=== PATIENT | male | born 1975 | race Caucasian/White ===

== ENCOUNTER → 2024-01-25 | Outpatient (CLI) | payer BC, SELFPAY ==
[2024-01-25 10:17] LABS: Prostate Specific Antigen 6.76 ng/mL (0-4.00)
== END | disposition home or self-care (01) ==
PROVIDERS: PCP Family Medicine; Referring Provider Family Medicine; Visit Provider Family Medicine
DX: R97.20 Elevated prostate specific antigen [PSA] (principal)
CPT/HCPCS: 36415; 84153

== ENCOUNTER → 2024-01-31 | Outpatient (BNVA) | payer BC, SELFPAY | END | disposition home or self-care (01) | PROVIDERS: PCP Family Medicine; Referring Provider Family Medicine; Visit Provider Urology | DX: N40.1 Benign prostatic hyperplasia with lower urinary tract symptoms (principal); N13.8 Other obstructive and reflux uropathy; R97.20 Elevated prostate specific antigen [PSA]; I10 Essential (primary) hypertension | CPT/HCPCS: 99212; G0463 ==

== ENCOUNTER → 2024-02-18 | Outpatient (BNVA) | payer BC, SELFPAY | END | disposition home or self-care (01) | PROVIDERS: PCP Family Medicine; Referring Provider Family Medicine; Visit Provider Urology | DX: R97.20 Elevated prostate specific antigen [PSA] (principal); I10 Essential (primary) hypertension | CPT/HCPCS: 99212; G0463 ==

== ENCOUNTER → 2024-03-10 | Outpatient (CLI) | payer BC, SELFPAY ==
--- NOTE | 2024-03-10 | XR_ITS ---
Examination: Foot, right, 3 views Technique: AP, oblique, lateral views foot, 3 views weightbearing Date and time of exam: March 10, 2024 1328 hours Indications acute fracture base second metatarsal on foot examination January 01, 2024 FINDINGS: Significant osteopenia Significant partial healing fracture base second metatarsal with stable and satisfactory alignment IMPRESSION: Significant partial healing fracture base second metatarsal with stable and satisfactory alignment
== END | disposition home or self-care (01) ==
LOC: CDIM 12:59
PROVIDERS: PCP Family Medicine; Referring Provider Orthopaedic Surgery; Visit Provider Orthopaedic Surgery
DX: S92.321A Displaced fracture of second metatarsal bone, right foot, initial encounter for closed fracture (principal); X58.XXXA Exposure to other specified factors, initial encounter
CPT/HCPCS: 73630

== ENCOUNTER 2024-07-12 16:00 | Outpatient (RCR) | payer BC, SELFPAY ==
--- NOTE | 2024-07-06 15:07 | PT.OIERPT ---
PT OP Initial Eval Patient Information Outpatient Physical Therapy Treatment Date: 07/06/24 Visit Reasons: Fracture of foot Medical Diagnosis: S92.211D S92.312 D Treatment Dx #1: R foot weakness Treatment Dx #2: Decreased WB tolerance of R foot Start of Care: 07/06/24 Date of Onset: 12/31/24 Smoking Status Smoking Status: Never smoker Initial Assessment Subjective: Pt is 49 yr old male s/p trip and fall with R [employer]. He is ambulating with walking boot that he has used since February when he started weightbearing on that foot. He is ambulating slowly limited distances. 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 He has been trying to ambulate without the boot at work but doesn't feel he's ready on gravel. The pain is light in the foot. PMH: none reported Imaging: Xrays in EMR Pt goal: regain mobility and walk further, jog for exercise Objective: R ankle AROM: Strength: DF: 10 deg 4-/5 PF: 45 deg Inversion/Eversion: 15 deg Gait: decreased WB on R, unsymmetrical PROM: forefoot inversion/eversion: some tightness but low to no pain Assessment: Pt presentation consistent with referring Dx with decreased strength and WB tolerance of R ankle and foot. Pt requires skilled therapy to meet goals and has good rehab potential. Short Term and Skilled Nursing Goals 1. Ind with HEP 2. Ween off the boot as tolerated to ambulate x required distances with symmetrical pattern 3. Improved ankle strength into DF and PF to 4+/5 Treatment Plan ? 1. Manual therapy ? 2. Therex ? 3. Modalities as indicated, moist heat, ice, estim Frequency and Duration: 2x a week for 5 weeks Certification Dates: 07/06/24 to 10/04/24 Procedure Charges OP PT Eval Mod Complex 30 minutes: Yes
--- NOTE | 2024-07-10 18:21 | PT.ODAYNRPT ---
PT Outpatient Daily Note OP Daily Note Outpatient Physical Therapy Treatment Date: 07/10/24 Visit Reasons: Fracture of foot Subjective: He worked today with low pain in R foot and wearing boot at work. Objective: See F/S for therex Assessment: Low tissue irritability with therex Plan: Continue per POC Length of Time (minutes) of Treatment: 30 Minutes Procedure Charges Therapeutic Exercise 30 minutes: Yes
--- NOTE | 2024-07-12 17:55 | PT.ODAYNRPT ---
PT Outpatient Daily Note OP Daily Note Outpatient Physical Therapy Treatment Date: 07/12/24 Visit Reasons: Fracture of foot Subjective: Some tolerable soreness after last visit in the R foot Objective: See F/S for therex Assessment: Low tissue irritability with therex Plan: Continue per POC Length of Time (minutes) of Treatment: 30 Minutes Procedure Charges Therapeutic Exercise 30 minutes: Yes
== END 2024-07-12 23:59 | disposition home or self-care (01) ==
LOC: CPTX 16:00
PROVIDERS: PCP Orthopaedic Surgery; Referring Provider Orthopaedic Surgery; Visit Provider Orthopaedic Surgery
DX: M79.671 Pain in right foot (principal); R53.1 Weakness; S92.211D Displaced fracture of cuboid bone of right foot, subsequent encounter for fracture with routine healing; S92.312D Displaced fracture of first metatarsal bone, left foot, subsequent encounter for fracture with routine healing; W01.0XXD Fall on same level from slipping, tripping and stumbling without subsequent striking against object, subsequent encounter
CPT/HCPCS: 97110; 97162

== ENCOUNTER 2024-08-08 16:30 | Outpatient (RCR) | payer BC, SELFPAY ==
--- NOTE | 2024-07-19 17:23 | PT.ODAYNRPT ---
PT Outpatient Daily Note OP Daily Note Outpatient Physical Therapy Treatment Date: 07/19/24 Visit Reasons: Fracture of the foot Subjective: Some tolerable soreness after last visit in the R foot Objective: See F/S for therex Assessment: Low tissue irritability with therex and good strength with step ups and heel raises. Plan: Continue per POC Length of Time (minutes) of Treatment: 30 Minutes Procedure Charges Therapeutic Exercise 30 minutes: Yes
--- NOTE | 2024-07-24 17:19 | PT.ODAYNRPT ---
PT Outpatient Daily Note OP Daily Note Outpatient Physical Therapy Treatment Date: 07/24/24 Visit Reasons: Fracture of the foot Subjective: Some tolerable soreness after last visit in the R foot. He's working light duty and not lifting heavy. Objective: See F/S for therex Assessment: Low tissue irritability with therex and good strength with step ups and heel raises. Plan: Continue per POC Length of Time (minutes) of Treatment: 30 Minutes Procedure Charges Therapeutic Exercise 30 minutes: Yes
--- NOTE | 2024-07-26 17:17 | PT.ODAYNRPT ---
PT Outpatient Daily Note OP Daily Note Outpatient Physical Therapy Treatment Date: 07/26/24 Visit Reasons: Fracture of the foot Subjective: Some tolerable soreness after last visit in the R foot. He's working light duty and not lifting heavy. Objective: See F/S for therex Assessment: Low tissue irritability with therex and good strength with step ups and heel raises. Plan: Continue per POC Length of Time (minutes) of Treatment: 30 Minutes Procedure Charges Therapeutic Exercise 30 minutes: Yes
--- NOTE | 2024-08-02 17:15 | PT.ODAYNRPT ---
PT Outpatient Daily Note OP Daily Note Outpatient Physical Therapy Treatment Date: 08/02/24 Visit Reasons: Fracture of the foot Subjective: Some tolerable soreness after last visit in the R foot. He's working light duty and not lifting heavy. Objective: See F/S for therex Assessment: Low tissue irritability with therex and good strength with step ups and heel raises. Plan: Continue per POC Length of Time (minutes) of Treatment: 30 Minutes Procedure Charges Therapeutic Exercise 30 minutes: Yes
--- NOTE | 2024-08-08 18:39 | PT.ODS1RPT ---
PT OP Progress/Discharge Note Date of Service: 08/08/24 Progress Note/DC Note Progress Note/Discharge Note: DC Note Patient Information Visit Reasons: Fracture of the foot Service Continue Service or Discharge: Discharge Discharge Date: 08/08/24 Status Subjective: Pt reports an insurance change at the end of the month so he will need to stop therapy. He reports better strength of R foot and he is walking without the boot and working without problems. Objective: R ankle Strength: DF: 4+/5 PF: 4+/5 R ankle AROM: DF: 10 deg PF: 50 deg Gait: symmetrical without the boot Assessment: Pt has attended the eval and 8 Rx visits with good progress to meet therapy goals. He is ambulating community distances with symmetrical pattern and ankle strength has improved to meet the goal of 4+/5. Pt is independent with HEP. Plan: D/C with HEP Procedure Charges Therapeutic Exercise 30 minutes: Yes
== END 2024-08-12 23:59 | disposition home or self-care (01) ==
LOC: CPTX 16:30
PROVIDERS: PCP Orthopaedic Surgery; Referring Provider Orthopaedic Surgery; Visit Provider Orthopaedic Surgery
DX: R53.1 Weakness (principal); S92.211D Displaced fracture of cuboid bone of right foot, subsequent encounter for fracture with routine healing; S92.312D Displaced fracture of first metatarsal bone, left foot, subsequent encounter for fracture with routine healing; W01.0XXD Fall on same level from slipping, tripping and stumbling without subsequent striking against object, subsequent encounter
CPT/HCPCS: 97110